=== PATIENT | female | born 1955 | race Caucasian/White ===

== ENCOUNTER 2025-01-08 09:44 | Outpatient (OUT) | payer MEDICARE, OTHER, SELFPAY ==
--- NOTE | 2025-01-08 09:54 | MM_ITS ---
Patient Name: CRICKET RENEE MR#: [id number] : 1955 Exam Date: 01/08/2025 Ordering Doctor: DR BETINA POSADAS D.O. RADIOLOGY REPORT PROCEDURE: MM TOMOSYNTHESIS SCREENING BI COMPARISON: MM TOMOSYNTHESIS SCREENING BI, 01/06/2024. MM TOMOSYNTHESIS SCREENING BI, 11/23/2022. MM TOMOSYNTHESIS SCREENING BI, 03/07/2021. MG MAMM SCREEN DANIEL W CAD, 05/29/2016. INDICATIONS: Screening Calculator Name NCI Breast Cancer Risk Assessment Tool 5 Year Breast Cancer Risk 1.80% Lifetime Breast Cancer Risk 6.00% Personal Breast Cancer No Personal Ovarian Cancer No Treatments None Family Cancers None LOCATION: [facility] BREAST COMPOSITION: The breasts are heterogeneously dense, which may obscure small masses. FINDINGS: RIGHT BREAST: No significant suspicious finding. Benign-appearing calcifications are present similar focal asymmetries. LEFT BREAST: No significant suspicious finding. Benign-appearing calcifications are present with similar focal asymmetries. DIAGNOSTIC CATEGORY 2--BENIGN FINDING. NO CHANGE FROM COMPARISON. RECOMMENDATIONS: ROUTINE MAMMOGRAM AND CLINICAL EVALUATION IN 12 MONTHS. Dictated by: Richmond Mirza MD on 01/08/2025 at 15:47 Approved by: Richmond Mirza MD on 01/08/2025 at 15:59
== END 2025-01-08 09:45 | disposition home or self-care (01) ==
LOC: MAMMO 09:44
PROVIDERS: PCP Internal Medicine; Visit Provider Internal Medicine
DX: Z12.31 Encounter for screening mammogram for malignant neoplasm of breast (principal); Z78.0 Asymptomatic menopausal state
CPT/HCPCS: 77063; 77067; 77080